=== PATIENT | female | born 1970 | race African-American/Black ===

== ENCOUNTER 2019-05-24 10:31 | Inpatient (IN) | payer MEDICAID ==
[~2019-05-24] VITALS: Ht 160 cm; Wt 89.8 kg
[2019-05-24] MEDS ORDERED: METHYLPREDNISOLONE SOD SUCC 125 MG/2 ML VIAL IV STA (11:32)
[2019-05-24] MEDS ORDERED: LEVOFLOXACIN 750MG PREMIX 150 ML IV ONE (11:45)
[2019-05-24] MEDS ORDERED: IPRATROPIUM/ALBUTEROL 0.5-3(2.5)MG/3ML NEB HHN ONE (11:45)
[2019-05-24] MEDS ORDERED: MAGNESIUM 2 G PREMIX 50 ML IV ONE (11:45)
[2019-05-24 11:48] LABS: CHLORIDE 109 mEq/L (98-107)
[2019-05-24 11:49] LABS: BASOPHILS % 0.8 % (0.0-2.0); EOSINOPHILS % 1.5 % (0.0-5.0); HEMOGLOBIN. 12.7 g/dL (12.0-16.0); LYMPHOCYTES % 27.8 % (20.0-50.0); MEAN CORPUSCULAR HEMOGLOBIN 31.4 pg (28.0-32.0); MEAN CORPUSCULAR VOLUME 94.2 fL (81.0-99.0); MEAN PLATELET VOLUME 7.5 fl (7.4-10.4); NEUTROPHILS % 61.9 % (40.0-76.0); PLATELET 230 x1000/uL (130-400); RED BLOOD CELL COUNT 4.03 mill/uL (4.2-5.4); RED CELL DISTRIBUTION WIDTH 15.1 % (11.6-14.6)
[2019-05-24 11:51] LABS: ETHANOL BLOOD < 10 mg/dL
[2019-05-24 11:57] LABS: PARTIAL THROMBOPLASTIN TIME 24.7 sec (23.4-31.0)
[2019-05-24 12:16] LABS: HCG SCREEN NEGATIVE
[2019-05-24 12:41] LABS: CLARITY URINE CLOUDY (CLEAR); COLOR URINE YELLOW (YELLOW); KETONES URINE NEGATIVE (NEGATIVE); LEUKOCYTE ESTERASE URINE NEGATIVE (NEGATIVE); NITRITE URINE NEGATIVE (NEGATIVE); OCCULT BLOOD URINE TRACE (NEGATIVE); PH URINE 5.5 (4.5-8.0); PROTEIN URINE NEGATIVE (NEGATIVE); SPECIFIC GRAVITY URINE 1.022 (1.005-1.030); UROBILINOGEN URINE 0.2 E.U./dL (0.2-1.0)
[2019-05-24 12:48] LABS: *BARBITURATES SCREEN URINE NEGATIVE (NEGATIVE); METHADONE URINE SCREEN NEGATIVE (NEGATIVE); OPIATES URINE SCREEN NEGATIVE (NEGATIVE)
[2019-05-24 12:49] LABS: *AMPHETAMINES SCREEN URINE NEGATIVE (NEGATIVE); *BENZODIAZEPINES SCREEN URINE NEGATIVE (NEGATIVE)
[2019-05-24 12:58] LABS: *COCAINE SCREEN URINE PRESUMTIVE POSITIVE (NEGATIVE)
[2019-05-24 12:59] LABS: CANNABINOID URINE SCREEN PRESUMTIVE POSITIVE (NEGATIVE)
[2019-05-24 13:02] LABS: PHENCYCLIDINE URINE SCREEN NEGATIVE (NEGATIVE)
[2019-05-24] MEDS ORDERED: ALBUTEROL (0.5%) 2.5MG/0.5ML NEB HHN ONE (13:30)
[2019-05-24] MEDS ORDERED: POTASSIUM CHLORIDE 20MEQ TABLET SR PO SCH (16:15)
[2019-05-24] MEDS ORDERED: IPRATROPIUM/ALBUTEROL 0.5-3(2.5)MG/3ML NEB HHN PRN (16:15)
[2019-05-24] MEDS ORDERED: GUAIFENESIN-DM 200MG-20MG/10ML UDC PO PRN (16:15)
[2019-05-24 22:00] VITALS: BP 128/71
[2019-05-24] MEDS: GUAIFENESIN 600MG ER TABLET PO SCH (23:32)
[2019-05-24] MEDS: HYDROCODONE/ACETAMINOPHEN 10/325MG TABLET PO PRN (23:32)
[2019-05-24] MEDS: METHYLPREDNISOLONE SOD SUCC 40 MG/ML VIAL IV SCH (23:32)
[2019-05-25] MEDS: IPRATROPIUM/ALBUTEROL 0.5-3(2.5)MG/3ML NEB HHN SCH ×6 (01:09→21:15)
[2019-05-25 04:00] VITALS: BP 134/83
[2019-05-25] MEDS: METHYLPREDNISOLONE SOD SUCC 40 MG/ML VIAL IV SCH ×2 (05:23→12:37)
[2019-05-25 06:09] LABS: HEMATOCRIT. 38.9 % (36.0-48.0); MEAN CORPUSCULAR HEMOGLOBIN 31.7 pg (28.0-32.0); MEAN CORPUSCULAR VOLUME 95.1 fL (81.0-99.0); MEAN PLATELET VOLUME 8.7 fl (7.4-10.4); PLATELET 204 x1000/uL (130-400); RED BLOOD CELL COUNT 4.09 mill/uL (4.2-5.4); RED CELL DISTRIBUTION WIDTH 15.1 % (11.6-14.6)
[2019-05-25 06:12] LABS: CHLORIDE 105 mEq/L (98-107)
[2019-05-25 08:00] VITALS: BP 147/78
[2019-05-25] MEDS: GUAIFENESIN 600MG ER TABLET PO SCH ×2 (08:59→21:19)
[2019-05-25] MEDS: HYDROCODONE/ACETAMINOPHEN 10/325MG TABLET PO PRN ×3 (09:11→21:52)
[2019-05-25 12:00] VITALS: BP 136/64
[2019-05-25 12:34] LABS: PLATELET ESTIMATE NORMAL
[2019-05-25 15:49] VITALS: BP 138/83
[2019-05-25] MEDS ORDERED: GUAI600T26 MT (15:53)
[2019-05-25] MEDS ORDERED: IPRA3AMP9 NEB (15:53)
[2019-05-25] MEDS ORDERED: TUSSL MT (15:53)
[2019-05-25] MEDS ORDERED: NICO-645 TP (15:53)
[2019-05-25] MEDS ORDERED: FLUT1DIS3 INH (15:53)
[2019-05-25] MEDS ORDERED: P20 MT (15:53)
[2019-05-25] MEDS: NICOTINE 21MG PATCH TD SCH (16:30)
[2019-05-25 20:00] VITALS: BP 129/62
[2019-05-26] VITALS: BP 116/60
[2019-05-26] MEDS: IPRATROPIUM/ALBUTEROL 0.5-3(2.5)MG/3ML NEB HHN SCH ×5 (01:38→14:44)
[2019-05-26 04:00] VITALS: BP 144/83
[2019-05-26] MEDS: HYDROCODONE/ACETAMINOPHEN 10/325MG TABLET PO PRN (04:20)
[2019-05-26 08:00] VITALS: BP 140/83
[2019-05-26] MEDS ORDERED: METHYLPREDNISOLONE SOD SUCC 40 MG/ML VIAL IV SCH (09:00)
[2019-05-26] MEDS: GUAIFENESIN 600MG ER TABLET PO SCH (09:56)
[2019-05-26] MEDS: NICOTINE 21MG PATCH TD SCH (10:19)
[2019-05-26 11:06] VITALS: BP 140/87
[2019-05-26 12:00] VITALS: BP_SYST 118; BP_SYST 145; BP_DIAS 65; BP_DIAS 98
== END 2019-05-26 15:29 | disposition left against medical advice (07) | DRG 144 ==
LOC: ER 10:31 → 6WST 13:42 → ENRESERV 20:22
PROVIDERS: ADMIT Internal Medicine; ATTEND Internal Medicine
DX: J68.0 Bronchitis and pneumonitis due to chemicals, gases, fumes and vapors (principal); E66.9 Obesity, unspecified; E87.6 Hypokalemia; F14.10 Cocaine abuse, uncomplicated; F12.10 Cannabis abuse, uncomplicated; I10 Essential (primary) hypertension; F17.210 Nicotine dependence, cigarettes, uncomplicated; Z88.0 Allergy status to penicillin; Z71.6 Tobacco abuse counseling; Z71.3 Dietary counseling and surveillance; Z68.35 Body mass index [BMI] 35.0-35.9, adult
CPT/HCPCS: 36415; 71045; 80048; 80305; 80320; 81003; 81025; 83036; 83605; 83880; 84484; 84703; 93005; 94640; 96365; 96375; 96376; 99285; J1956; J2920; J2930; J3475; J7620; G0480

== ENCOUNTER 2023-03-30 17:41 | Emergency (ER) | payer MEDICAID ==
[~2023-03-30] VITALS: Ht 165.1 cm; Wt 105.0 kg
[~2023-03-30 17:41] MED LIST: FLUT1DIS3 INH; GUAI600T26 MT; IPRA3AMP9 NEB; NICO-645 TP; P20 MT; TUSSL MT
[2023-03-30 17:50] VITALS: BP 168/88; PULSE 86; RESP 18; TEMP 97.9; O2SAT 99
== END 2023-03-30 20:29 | disposition left against medical advice (07) ==
LOC: ER 17:41
DX: Z53.21 Procedure and treatment not carried out due to patient leaving prior to being seen by health care provider (principal)